=== PATIENT | female | born 1965 | race Caucasian/White ===

== ENCOUNTER 2019-10-13 10:05 | Outpatient (CLI) | payer OTHER, SELFPAY ==
--- NOTE | ~2019-10-13 | MR_ITS ---
EXAMINATION: MR thoracic spine wo con DATE: 10/13/2019 11:13 INDICATION: Thoracic spine pain TECHNIQUE: Magnetic resonance imaging (MRI) of the thoracic spine was performed without intravenous c ontrast. Sagittal localizer T1-weighted FSE of the cervicothoracic spine was obtained. Thoracic spine sequences included sagittal T2-weighted FSE, sagittal T1-weighted SE, Sagittal T2-weighted FS FSE, a nd axial T2-weighted FSE. COMPARISON: None FINDINGS: Alignment is normal.Vertebral body heights are normal. Normal marrow signal.Minimal to mild disc heig ht loss at T3-T4 through T9-T10. Additional mild disc height loss at T12-L1. There is normal spinal c ord signal. The conus terminates at L1. Disc extrusions at C6-C7 and T1-T2 which are described in fur ther detail on cervical spine MRI also performed on 10/13/2019. Annular fissure at T2-T3 with moderate disc extrusion which extends from the right paracentral zone to the left subarticular zone with disc material centrally extending up to 3 mm cephalad to and 5 mm caudal to the level of the endplates. Th ere is mild secondary central canal stenosis at this level. Annular fissures at T8-T9 with small left subarticular zone disc extrusion extending 3 mm cephalad to and 2 mm caudal to the level of the endp lates. Moderate diffuse disc bulges at T12-L1 with annular fissure and moderate sized right subarticu lar zone disc extrusion with disc material extending up to 3 mm cephalad and caudal to the level of t he endplates and resulting in mild central canal stenosis. Very small central disc protrusions at T6- T7, T9-T10 and T10-T11. Moderate bilateral facet osteoarthritis at T10-T11. Otherwise mild facet oste oarthritis throughout the remainder of the thoracic spine. No significant thoracic neural foraminal s tenosis. IMPRESSION: 1. Mild thoracic spondylosis with mild central canal stenosis resulting from a moderate-sized disc ex trusions at T2-T3 and T12-L1. Reviewed, dictated and finalized at location B. IMPRESSION: 1. Mild thoracic spondylosis with mild central canal stenosis resulting from a moderate-sized disc extrusions at T2-T3 and T12-L1.
--- NOTE | ~2019-10-13 | MR_ITS ---
EXAMINATION: MR cervical spine wo con DATE: 10/13/2019 11:13 INDICATION: Neck pain. TECHNIQUE: Magnetic resonance imaging (MRI) of the cervical spine was performed without intravenous c ontrast. Sequences included sagittal T2-weighted FSE, sagittal T2-weighted FS FSE, sagittal T1-weight ed FSE, axial MERGE, and axial T2-weighted FSE. COMPARISON: None FINDINGS: There is mild kyphosis of cervical spine. Vertebral body heights are normal. There is mildl y decreased disc height at C6-C7. The spinal cord signal intensity is normal. The following disc leve ls are specifically discussed: C2-C3: The disc does not extend beyond the endplate margin. There is no uncovertebral joint osteoarth ritis. There is mild bilateral facet joint osteoarthritis. There is no neural foraminal stenosis. The re is no central canal stenosis. C3-C4: There is a central protrusion. There is no uncovertebral joint osteoarthritis. There is modera te right and mild left facet joint osteoarthritis. There is mild right neural foraminal stenosis. The re is no central canal stenosis. C4-C5: The disc does not extend beyond the endplate margin. There is no uncovertebral joint osteoarth ritis. There is mild right and severe left facet joint osteoarthritis. There is mild left neural fora nikos stenosis. There is no central canal stenosis. C5-C6: There is a central protrusion. There is no uncovertebral joint osteoarthritis. There is modera te left facet joint osteoarthritis. There is mild left neural foraminal stenosis. There is mild centr al canal stenosis. C6-C7: There is a central extrusion. There is mild right and moderate left uncovertebral joint osteoa rthritis. There is mild bilateral facet joint osteoarthritis. There is moderate right and mild left n eural foraminal stenosis. There is mild central canal stenosis with ventral indentation of the spinal cord. C7-T1: There is a left central extrusion. There is no uncovertebral joint osteoarthritis. There is mi ld right and severe left facet joint osteoarthritis. There is mild left neural foraminal stenosis. Th ere is mild central canal stenosis. IMPRESSION: 1. Moderate cervical spondylosis. Reviewed, dictated and finalized at location A.
== END 2019-10-13 10:06 | disposition home or self-care (01) ==
LOC: CHSIMG 10:09
PROVIDERS: PCP Family Medicine
DX: M99.01 Segmental and somatic dysfunction of cervical region (principal); M99.02 Segmental and somatic dysfunction of thoracic region; M54.6 Pain in thoracic spine
CPT/HCPCS: 72141; 72146

== ENCOUNTER → 2019-12-14 15:27 | Outpatient (CLI) | payer OTHER, SELFPAY ==
--- NOTE | ~2019-12-14 | US_ITS ---
EXAMINATION: US pelvic complete w TV DATE: 12/14/2019 16:02 INDICATION: Pelvic pain. TECHNIQUE: Multiple transabdominal and transvaginal sonographic images of the pelvis were obtained. COMPARISON: None. FINDINGS: TRANSABDOMINAL ULTRASOUND: The uterus measures 7.6 x 5.0 x 5.0 cm. There is no free fluid in the pelvis. TRANSVAGINAL ULTRASOUND: The endometrial complex measures 6 mm in thickness. There is a 1.2 cm hypoechoic submucosal fibroid. There is a 1.9 cm hypoechoic intramural fibroid. The right ovary is not visualized. The left ovary me asures 1.8 x 1.1 x 1.6 cm. There is normal vascular flow in left ovary. IMPRESSION: 1. Uterine fibroids. 2. Right ovary not visualized. Reviewed, dictated and finalized at location A.
== END ==
PROVIDERS: PCP Family Medicine; Visit Provider Nurse Practitioner
DX: R10.2 Pelvic and perineal pain (principal); D25.9 Leiomyoma of uterus, unspecified
CPT/HCPCS: 76830; 76856

== ENCOUNTER → 2020-02-02 15:19 | Outpatient (CLI) | payer OTHER, SELFPAY ==
--- NOTE | ~2020-02-02 | MM_ITS ---
EXAMINATION: MM screening fifi BI w senthil HISTORY: Screening mammogram TECHNIQUE: Craniocaudal and mediolateral oblique 3-D tomosynthesis images were obtained and synthetic 2-D images were generated. CAD analysis was submitted and interpreted. COMPARISON: 09/10/2018, 09/09/2017 bilateral digital screening mammogram examinations 08/27/2016 bilateral diagnostic digital mammogram BREAST PARENCHYMAL COMPOSITION: The breasts are almost entirely fatty. FINDINGS: There are scattered bilateral benign calcifications. There is no evidence of suspicious mas s, calcification, or architectural distortion to suggest malignancy in either breast. There has been no suspicious interval change. IMPRESSION: 1. No mammographic evidence of malignancy. 2. Recommend routine screening mammography in one year. BI-RADS Category 2: Benign finding(s). Reviewed, dictated and finalized at location A. ORATE SALES REPRESENTATIVE
== END ==
PROVIDERS: PCP Family Medicine; Visit Provider Nurse Practitioner
DX: Z12.31 Encounter for screening mammogram for malignant neoplasm of breast (principal)
CPT/HCPCS: 77063; 77067

== ENCOUNTER → 2021-05-16 | Outpatient (REF) | payer OTHER, SELFPAY | END | disposition home or self-care (01) | LOC: ANHLAB 16:52 | PROVIDERS: PCP Family Medicine; Visit Provider Nurse Practitioner | DX: D49.2 Neoplasm of unspecified behavior of bone, soft tissue, and skin (principal); L57.0 Actinic keratosis | CPT/HCPCS: 88305 ==

== ENCOUNTER → 2021-12-26 16:02 | Outpatient (CLI) | payer OTHER, SELFPAY ==
--- NOTE | ~2021-12-26 | MM_ITS ---
EXAMINATION: MM screening fifi BI w senthil HISTORY: Screening TECHNIQUE: Craniocaudal and mediolateral oblique 3-D tomosynthesis images were obtained and synthetic 2-D images were generated. CAD analysis was submitted and interpreted. COMPARISON: Comparison to multiple prior studies sequentially, with oldest reviewed study dated 07/22. BREAST PARENCHYMAL COMPOSITION: The breasts are almost entirely fatty. FINDINGS: There is a focal asymmetry in the lower outer quadrant of the right breast, posteriorly. Th ere are no suspicious masses, calcifications or architectural distortion in the left breast to sugges t malignancy. IMPRESSION: 1. Focal right breast asymmetry. 2. Additional mammographic views and possible breast ultrasound are recommended. BI-RADS Category 0: Incomplete: Needs additional imaging evaluation. Reviewed, dictated and finalized at location A. ISIONING SPECIALIST IMPRESSION: 1. Focal right breast asymmetry. 2. Additional mammographic views and possible breast ultrasound are recommended . BI-RADS Category 0: Incomplete: Needs additional imaging evaluation.
== END ==
PROVIDERS: PCP Family Medicine; Visit Provider Nurse Practitioner
DX: Z12.31 Encounter for screening mammogram for malignant neoplasm of breast (principal); R92.8 Other abnormal and inconclusive findings on diagnostic imaging of breast
CPT/HCPCS: 77063; 77067

== ENCOUNTER → 2022-01-18 08:28 | Outpatient (CLI) | payer OTHER, SELFPAY ==
--- NOTE | ~2022-01-18 | MMUS_ITS ---
EXAMINATION: MM diagnostic fifi RT w senthil, US breast RT limited HISTORY: Focal asymmetry of the right breast on screening mammogram TECHNIQUE: Additional 3-D tomosynthesis images of the right breast were performed and synthetic 2-D i mages were generated. CAD analysis was submitted and interpreted. High resolution limited right breas t ultrasound was performed. COMPARISON: 12/26/2021, 01/03/2020, 09/10/2018, 09/09/2017 FINDINGS: MAMMOGRAPHIC FINDINGS: There is a return to baseline fibroglandular appearance with spot compression of the right breast in the area questioned on screening mammogram. ULTRASOUND: There is no evidence of focal abnormal solid or cystic mass in the vicinity of the mammographic findi ng in question. Small cysts are noted in the breast. IMPRESSION: 1. No mammographic or sonographic evidence of malignancy. 2. Recommend routine screening mammography in one year. BI-RADS Category 2: Benign finding(s). Reviewed, dictated and finalized at location A. RING AND LINING SUPERVISOR IMPRESSION: 1. No mammographic or sonographic evidence of malignancy. 2. Recommend routine screening mammography in one year. BI-RADS Category 2: Benign finding(s).
== END ==
PROVIDERS: PCP Family Medicine; Visit Provider Obstetrics & Gynecology Gynecology
DX: R92.8 Other abnormal and inconclusive findings on diagnostic imaging of breast (principal)
CPT/HCPCS: 76642; 77061; 77065; G0279

== ENCOUNTER 2022-06-16 09:26 | Emergency (ER) | payer OTHER, SELFPAY ==
--- NOTE | 2022-06-16 09:36 | ED.URI ---
HPI - URI/Sore Throat General Chief Complaint: Upper Respiratory Infection Stated Complaint: SCRATCHY THROAT/COUGH/STREP EXPOSURE Source: patient and RN notes reviewed History of Present Illness HPI Narrative: 56-year-old female presents to urgent care with complaints of a scratchy throat, runny nose, sneezing, and had fullness. Patient states she has felt like this since and feels like she is coming down with something. Patient states her 2-year-old grand child currently has strep throat and she has been around her. Patient denies any fevers, chills, chest pain, shortness of breath, vomiting, or diarrhea. Patient has not taken anything for her symptoms. Some parts of this dictation were generated by voice recognition software and may contain typographical and/or grammatical inaccuracies. Related Data Home Medications Medication Instructions Recorded Confirmed ergocalciferol (vitamin D2) 1,250 1,250 mcg PO 2XW 01/03/21 06/16/22 mcg (50,000 unit) capsule Allergies Allergy/AdvReac Type Severity Reaction Status Date / Time amoxicillin Allergy Mild Hives Verified 06/16/22 09:44 Review of Systems Review of Systems: Pertinent positives and pertinent negatives per HPI. [facility] Past Medical History Medical History (Updated 06/16/22 @ 10:09 by Mavis Hartman APRN) Anxiety Elevated blood pressure reading in office without diagnosis of hypertension FH: diabetes mellitus Hypertriglyceridemia Pre-diabetes Vitamin D deficiency Family History Family History Mother Diabetes mellitus Hypertension Family history of cardiovascular disease Grandparent Diabetes mellitus Hypertension Family history of cardiovascular disease Father Family history of glaucoma Social History Social History (Updated 06/11/22 @ 12:02 by Sanjana Olivera [facility]) Smoking status: Never smoker Second hand tobacco smoke exposure: No Alcohol intake: never Substance use: never Substance use type: does not use Lack of Transportation: No Lack of Food: Never True Current Housing: I Have Housing Concerned About Future Housing: No Difficulty Paying Gas/Electric Bills: No Difficulty Paying for Meds: No Currently Unemployed: No Difficulty w/ Childcare or Family Care: No Living arrangements: with family Gender identity (if verbalized by the patient): Female Spiritual care concerns: No Agree to blood products: Yes Comments At the time of my signature, I reviewed and agree with the nursing past medical, surgical, social, and family history. There is no relevant family history pertinent to the patient complaint. Exam Narrative: GENERAL: This is a well-nourished, well-developed patient, in no apparent distress. HEAD: normocephalic, atraumatic. EYES: Sclera clear/white. Vision is grossly intact. EARS: External ears normal, auditory canals clear and without drainage, TMs normal without perforation. Hearing grossly intact. NOSE: External nose normal with no obvious nasal discharge, nares without redness, no rhinorrhea. THROAT: Mucous membranes moist, posterior pharynx clear. NECK: Neck supple, non-tender without lymphadenopathy, masses or thyromegaly. CARDIOVASCULAR: Regular rate and rhythm without murmurs, gallops, or rubs. RESPIRATORY: Clear to auscultation. Breath sounds equal bilaterally. No wheezes, rales, or rhonchi. SKIN: warm, intact with no suspicious lesions or rash, good texture and turgor. NEURO: awake, alert, and oriented to person, place and time. There were no obvious focal neurologic abnormalities. Course Course Level of Care: Express Care Visit Vital Signs Vital signs: Reviewed MDM - URI/Sore Throat MDM Narrative Medical decision making narrative: Viral illness may last between 7-21 days; antibiotics do not cure viral illness and are NOT recommended at this time. Also, recommend symptomatic treatment includ
[2022-06-16 09:51] VITALS: BP 146/91; PULSE 93; RESP 16; TEMP 36.8; O2SAT 98
== END 2022-06-16 10:13 | disposition home or self-care (01) ==
PROVIDERS: Emergency Provider Nurse Practitioner Family; PCP Family Medicine
DX: J06.9 Acute upper respiratory infection, unspecified (principal); F41.9 Anxiety disorder, unspecified
CPT/HCPCS: 87081; 87880; 99213; G0463

== ENCOUNTER → 2022-06-28 09:22 | Outpatient (CLI) | payer OTHER, SELFPAY ==
--- NOTE | ~2022-06-28 | MMUS_ITS ---
EXAMINATION: MM diagnostic fifi RT w senthil, US breast RT limited HISTORY: Palpable lump in the upper outer quadrant of the right breast TECHNIQUE: Craniocaudal, mediolateral, and mediolateral oblique 3-D tomosynthesis images of the right breast were performed and synthetic 2-D images were generated. CAD analysis was submitted and interp reted. High resolution limited right breast ultrasound was performed. COMPARISON: 01/18/2022, 12/26/2021, 02/02/2020 BREAST PARENCHYMAL COMPOSITION: The breasts are almost entirely fatty. FINDINGS: MAMMOGRAPHIC FINDINGS: There has been interval development of focal asymmetry in the upper outer quadrant of the breast at t he site of the patient's reported palpable abnormality of concern. This is associated with interval d evelopment of multiple new small oil cysts in the area of palpable concern. An approximately 11 mm lo w density mass with mildly irregular margins is incidentally noted at the 9:00 location, 15 cm from t he nipple. ULTRASOUND: There is ill-defined heterogeneous, isoechoic and hypoechoic nonmass area at the 11:30 location, 7 cm from the nipple corresponding to the palpable abnormality of concern. There is a 7 mm hypoechoic mas s with irregular and indistinct margins, posterior acoustic shadowing, and no definite internal vascu larity at the 9:00 location, 11 cm from the nipple. IMPRESSION: 1. Indeterminate mass at the 9:00 location, 11 cm from the nipple in the right breast. Ultrasound-lynda ded biopsy is recommended. 2. Mammographic and sonographic findings at the site of the palpable abnormality suggestive of interv al breast trauma and resolving hematoma. Clinical follow-up is recommended with repeat imaging if cli nical findings do not resolve. BI-RADS category 4, suspicious findings. Reviewed, dictated and finalized at location A. IMPRESSION: 1. Indeterminate mass at the 9:00 location, 11 cm from the nipple in the right breast. Ultrasound-guided biopsy is recommended. 2. Mammographic and sonographic findings at the site of the palpable abnormalit y suggestive of interval breast trauma and resolving hematoma. Clinical follow- up is recommended with repeat imaging if clinical findings do not resolve. BI-RADS category 4, suspicious findings.
== END ==
PROVIDERS: PCP Advanced Practice Midwife; Visit Provider Advanced Practice Midwife
DX: N63.10 Unspecified lump in the right breast, unspecified quadrant (principal); N64.4 Mastodynia
CPT/HCPCS: 76642; 77061; 77065; G0279

== ENCOUNTER 2022-07-26 10:15 | Outpatient (CLI) | payer OTHER, SELFPAY ==
--- NOTE | ~2022-07-26 | MMUS_ITS ---
EXAMINATION: US GUIDED NEEDLE BIOPSY DATE: 07/26/2022 14:12 CDT INDICATION: Indeterminate approximately 4 mm 9:00 right breast mass TECHNIQUE AND FINDINGS: The risks and potential benefits of the procedure were discussed with the patient, and written inform ed consent was obtained. Timeout procedure was performed. After sterile preparation of the right rosalie st, 1% lidocaine was utilized for local anesthesia. The area of concern was not easily located. A hypoechoic area was identified at 9:00, although not at 11 cm from the nipple. No definite abnormality was detected at 9:00 11 cm from the nipple on the current examination. The visualized lesion on the current examination however is antiparallel and mildly irregular, prompt ing biopsy. Six-month diagnostic right mammogram and right breast ultrasound follow-up are recommended, with part icular attention to 9:00 11 cm from nipple. A 14G spring-loaded biopsy gun needle was advanced to the edge of the region of interest from a media l approach utilizing sonographic guidance. A total of three tissue core samples were obtained throug h the lesion. An Inrad tissue marker clip was then placed at the biopsy site. Hemostasis was achieve d. A sterile bandage was applied. The patient tolerated procedure well and there was no evidence of immediate complication. The patien t was given verbal instructions prior to departing from the department. A two view mammogram was perf ormed to document tissue marker clip placement. The tissue samples were submitted to surgical patholo gy for histologic analysis. IMPRESSION: 1. Ultrasound guided biopsy of right 9:00 breast hypoechoic mass with biopsy marker placement. Please refer to pathology report for histologic analysis. 2. 6 month diagnostic right mammogram and right 9:00 11 cm from nipple breast ultrasound follow-up ar humberto recommended PLEASE NOTE RECOMMENDATION FOR 6 MONTH FOLLOW UP DIAGNOSTIC RIGHT MAMMOGRAM AND RIGHT BREAST 9:00 ULT RASOUND INCLUDING [address] Fierro telephoned this recommendation for six-month follow-up on 07/26/2022 [address] Jewel jackson's triage nurse voicemail. Reviewed, dictated and finalized at Location A. Reviewed, dictated and finalized at location A. IMPRESSION: 1. Ultrasound guided biopsy of right 9:00 breast hypoechoic mass with biopsy ma rker placement. Please refer to pathology report for histologic analysis. 2. 6 month diagnostic right mammogram and right 9:00 11 cm from nipple breast u ltrasound follow-up are recommended PLEASE NOTE RECOMMENDATION FOR 6 MONTH FOLLOW UP DIAGNOSTIC RIGHT MAMMOGRAM AND RIGHT BREAST 9:00 ULTRASOUND INCLUDING [address]. [address] Fierro telephoned this recommendation for six-month follow-up on 07/26/2022 [address] Lucero's triage nurse voicemail.
== END 2022-07-26 10:16 | disposition home or self-care (01) ==
PROVIDERS: PCP Family Medicine; Visit Provider Surgery
DX: N63.10 Unspecified lump in the right breast, unspecified quadrant (principal); R92.8 Other abnormal and inconclusive findings on diagnostic imaging of breast
CPT/HCPCS: 19083; 88305; A4648

== ENCOUNTER → 2022-12-31 14:14 | Outpatient (CLI) | payer OTHER, SELFPAY ==
--- NOTE | ~2022-12-31 | MM_ITS ---
EXAMINATION: MM diagnostic fifi BI w senthil HISTORY: Six-month follow-up of right breast from previous reportedly benign biopsy. Screening of lef t breast. TECHNIQUE: ML, MLO and CC 3-D tomosynthesis images of both breasts were performed and synthetic 2-D i mages were generated. CAD analysis was submitted and interpreted. COMPARISON: 07/26/2022 right ultrasound-guided breast biopsy 06/28/2022 diagnostic right mammogram and limited right breast ultrasound 01/18/2022 diagnostic right mammogram and limited right breast ultrasound 12/26/2021, 02/02/2020 bilateral screening mammogram examinations BREAST PARENCHYMAL COMPOSITION: The breasts are almost entirely fatty. FINDINGS: Biopsy marker on the right; history of prior benign right breast biopsy. No suspicious mass or architectural distortion, malignant calcification, skin thickening or retractio n or significant new or developing density is detected. IMPRESSION: 1. No mammographic evidence of malignancy 2. Routine annual mammographic screening is recommended. BI-RADS Category 1: Negative Reviewed, dictated and finalized at location A. ER CARE SOCIAL WORKER
== END ==
PROVIDERS: PCP Surgery; Referring Provider Family Medicine; Visit Provider Obstetrics & Gynecology Gynecology
DX: R92.8 Other abnormal and inconclusive findings on diagnostic imaging of breast (principal)
CPT/HCPCS: 77062; 77066; G0279

== ENCOUNTER 2024-02-27 07:33 | Outpatient (CLI) | payer OTHER, SELFPAY ==
--- NOTE | ~2024-02-27 | DEXA_ITS ---
Bone Density Report Name: PRAKASH RODRIGUEZ Age: 58 Sex: Female Ethnicity: White Date of : 1965 Indication: postmenopausal; screening for osteoporosis; height loss; Referring Provider: JOSIAH, ZACARIAS Study: Bone densitometry was performed. Exam Date: February 27, 2024 Accession number: [id number] Bone Density: Region BMD T-score Z-score Classification AP Spine(L1, L3, L4) 1.375 2.9 4.2 Normal Femoral Neck (Left) 1.056 1.9 3.0 Normal Total Hip (Left) 1.224 2.3 3.1 Normal Femoral Neck (Right) 1.107 2.3 3.5 Normal Total Hip (Right) 1.291 2.9 3.7 Normal Femoral Neck Mean 1.081 2.1 3.3 Normal Total Hip Mean 1.257 2.6 3.4 Normal World Health Organization criteria for BMD impression classify patients as: Normal (T-score at or above -1.0), Osteopenia (T-score between -1.0 and -2.5), or Osteoporosis (T-score at or below -2.5). 10-year Fracture Risk: FRAX not reported because: All T-scores for Spine Total, Hip Total, Femoral Neck at or above -1.0 Clinical Information Provided by Patient: Has used the following medications: Vitamin D Patient maximum height was 69 Menopause Age: 57 No regular weight bearing exercise Does not regularly consume dairy products Onset of menses at age 12 Number of children 3 Impression: The patient has normal bone mass. Discussion: LOW RISK OF FRACTURE; BONE DENSITY IS WELL ABOVE THE MINIMUM DESIRABLE LEVEL AND ABOVE AVERAGE FOR AGE AND SEX AT ALL SKELETAL SITES TESTED. This person's bone density is above expected limits for age and sex. This is rarely clinically significant, but should be pursued if there are significant musculoskeletal complaints. The patient should follow a healthful lifestyle (good nutrition with adequate calcium and vitamin D, and appropriate weight-bearing exercise). Follow-Up: Consider repeating this study in 5 years or sooner if there is some new clinical indication. Reported by: JAYME on 02/27/2024 8:07:00 AM. Reviewed, dictated and finalized at location A.
[2024-02-27 09:31] LABS: Alanine Aminotransferase 37 U/L (14-59); Albumin Level 3.8 g/dL (3.4-5.0); Alkaline Phosphatase 72 U/L (46-116); Anion Gap 9 mmol/L (4-12); Aspartate Amino Transferase 25 U/L (15-37); Bilirubin,Total 0.3 mg/dL (0.00-1.00); Blood Urea Nitrogen 21 mg/dL (7-18); Calcium 9.6 mg/dL (8.5-10.1); Carbon Dioxide 30 mmol/L (21-32); Chloride 105 mmol/L (98-108); Cholesterol 178 mg/dL (0-200); Estimated Glomerular Filt Rate > 60; Glucose 133 mg/dL (70-99); HDL Direct 54 mg/dL (40-60); LDL Cholesterol Calculated 107 mg/dL (<130); Osmolality Calculated 303 mOsm/kg (285-295); Potassium 4.3 mmol/L (3.5-5.1); Sodium 144 mmol/L (136-145); Total Protein 6.7 g/dL (6.4-8.2); Triglycerides 85 mg/dL (0-150)
== END 2024-02-27 07:34 | disposition home or self-care (01) ==
LOC: CHSIMG 07:36
PROVIDERS: PCP Family Medicine; Visit Provider Nurse Practitioner Women's Health
DX: E11.9 Type 2 diabetes mellitus without complications (principal); E78.2 Mixed hyperlipidemia; Z78.0 Asymptomatic menopausal state
CPT/HCPCS: 36415; 77080; 80053; 80061

== ENCOUNTER 2024-10-03 11:56 | Outpatient (CLI) | payer OTHER, SELFPAY ==
--- OUTSIDE RECORDS SUMMARY | 2011-05-17 | XMS_ITS | Encounter Summary ---
Author Organization [facility] Healthcare Address [address] [place] [address] Care Team Providers Care Tab Cutting Machine Operator Name Role Phone Unavailable Primary Care Provider Unavailabl e Reason for Visit * Diagnostic Imaging (Routine) - Pending Review Specialty Diagnoses / Procedures Referred By Contac t Referred To Contact Procedures Breast Imaging Screening Outside Reference Transcribed Order, Provider Referral ID Status Reason Start Date Expiration Date V isits Requested Visits Authorized [id number] Pending Review 12/31/2023 01/29/2025 1 1 Encounter Details Date Type Department Care Team (Late st Contact Info) Description 05/17/2011 Hospital Encounter [facility]iology [facility] [address] [place] [address] Social History Tobacco Use Types Packs/Day Years Used Date Smoking Tobacco: Never Smokeless Tobacco: Never Alcohol Use Standard Drinks/Week Comments Not Currently 0 (1 standard drink = 0.6 oz pur e alcohol) Comments No Sex and Gender Information Value Date Recorded Sex Assigned at Not on file Legal Sex Female 12:50 PM BLADE WORKER Gender Identity Not on file Sexual Orientation [...] CDT) Impressions [facility] - 12/31/2023 3:22 PM BLADE WORKER These images are for Reference purposes only and have not been reviewed by [facility]. There will be no report generated by a [facility] Radiologist. Narrative [facility] - 12/31/2023 3:22 PM BLADE WORKER EXAMINATION: Images For Reference Purposes Only us Provider Transcribed Order IMG MAMMO PROCEDURES Final Result [facility] documented in this encounter Visit Diagnoses Not on filedocumented in this encounter
--- OUTSIDE RECORDS SUMMARY | 2012-05-29 | XMS_ITS | Encounter Summary ---
Author Organization [facility] Healthcare Address [address] [place] [address] Care Team Providers Care Dehydrogenation Operator Head Name Role Phone Unavailable Primary Care Provider Unavailabl e Reason for Visit * Diagnostic Imaging (Routine) - Pending Review Specialty Diagnoses / Procedures Referred By Contac t Referred To Contact Procedures Breast Imaging Screening Outside Reference Transcribed Order, Provider Referral ID Status Reason Start Date Expiration Date V isits Requested Visits Authorized [id number] Pending Review 12/31/2023 01/29/2025 1 1 Encounter Details Date Type Department Care Team (Late st Contact Info) Description 05/29/2012 Hospital Encounter [facility] Radiology [facility] [address] [place] [address] Social History Tobacco Use Types Packs/Day Years Used Date Smoking Tobacco: Never Smokeless Tobacco: Never Alcohol Use Standard Drinks/Week Comments Not Currently 0 (1 standard drink = 0.6 oz pur e alcohol) Comments No Sex and Gender Information Value Date Recorded Sex Assigned at Not on file Legal Sex Female 12:50 PM SUPERVISOR YARD Gender Identity Not on file Sexual Orientation [...] BREAST IMAGING MG SCREENING OUTSIDE REFERENCE Routine 05/29/2012 12:00 AM CDT documented in this encounter Results * Breast Imaging Screening Outside Reference (05/29/2012 12:00 AM CDT) Impressions [facility] - 12/31/2023 3:21 PM SUPERVISOR YARD These images are for Reference purposes only and have not been reviewed by [facility]iology. There will be no report generated by a [facility] Radiologist. Narrative [facility] - 12/31/2023 3:21 PM SUPERVISOR YARD EXAMINATION: Images For Reference Purposes Only us Provider Transcribed Order IMG MAMMO PROCEDURES Final Result [facility] documented in this encounter Visit Diagnoses Not on filedocumented in this encounter
--- OUTSIDE RECORDS SUMMARY | 2013-06-12 | XMS_ITS | Encounter Summary ---
Author Organization [facility] Healthcare Address [address] [place] [address] Care Team Providers Care Seat Nailer Name Role Phone Unavailable Primary Care Provider Unavailabl e Reason for Visit * Diagnostic Imaging (Routine) - Pending Review Specialty Diagnoses / Procedures Referred By Shobhaac t Referred To Contact Procedures Breast Imaging US Outside Reference Transcribed Order, Provider Referral ID Status Reason Start Date Expiration Date V isits Requested Visits Authorized [id number] Pending Review 12/31/2023 01/29/2025 1 1 Encounter Details Date Type Department Care Team (Late st Contact Info) Description 06/12/2013 Hospital Encounter [facility]iology [facility] [address] [place] [address] Social History Tobacco Use Types Packs/Day Years Used Date Smoking Tobacco: Never Smokeless Tobacco: Never Alcohol Use Standard Drinks/Week Comments Not Currently 0 (1 standard drink = 0.6 oz pur e alcohol) Comments No Sex and Gender Information Value Date Recorded Sex Assigned at Not on file Legal Sex Female 12:50 PM CERTIFIED PHYSICAL THERAPIST ASSISTANT Gender Identity Not on file Sexual Orientation Not on file documented as of this encounter Plan of Treatment Not on file documented as of this encounter Goals Goal Patient Goal Type Associated Problems Recent Progress Patient-Stated? Author CCM Chronic Pain Care Plan Chronic Care Management No Bonnei Jolley, RN Note: Problem: Chronic Pain Goals: [...] CDT) Impressions [facility] - 12/31/2023 3:21 PM CERTIFIED PHYSICAL THERAPIST ASSISTANT These images are for Reference purposes only and have not been reviewed by [facility] Radiology. There will be no report generated by a [facility] Radiologist. Narrative RAD[facility] - 12/31/2023 3:21 PM CERTIFIED PHYSICAL THERAPIST ASSISTANT EXAMINATION: Images For Reference Purposes Only us Provider Transcribed Order IMG MAMMO PROCEDURES Final Result [facility] documented in this encounter Visit Diagnoses Not on filedocumented in this encounter
--- OUTSIDE RECORDS SUMMARY | 2013-06-12 00:05 | XMS_ITS | Encounter Summary ---
Author Organization [facility] Healthcare Address [address] [place] [address] Care Team Providers Care Gold Layer Name Role Phone Unavailable Primary Care Provider Unavailabl e Reason for Visit * Diagnostic Imaging (Routine) - Pending Review Specialty Diagnoses / Procedures Referred By Faviola t Referred To Contact Procedures Breast Imaging Diagnostic Outside Reference Transcribed Order, Provider Referral ID Status Reason Start Date Expiration Date V isits Requested Visits Authorized [id number] Pending Review 12/31/2023 01/29/2025 1 1 Encounter Details Date Type Department Care Team (Late st Contact Info) Description 06/12/2013 12:05 AM CDT Hospital Encounter [facility] Radiology [facility] [address] [place] [id number] Social History Tobacco Use Types Packs/Day Years Used Date Smoking Tobacco: Never Smokeless Tobacco: Never Alcohol Use Standard Drinks/Week Comments Not Currently 0 (1 standard drink = 0.6 oz pur e alcohol) Comments No Sex and Gender Information Value Date Recorded Sex Assigned at Not on file Legal Sex Female 12:50 PM NEEDLE PROCESS FELT GOODS SUPERVISOR Gender Identity Not on file Sexual Orientation [...] Date/Time Associated Diagnosis Comments BREAST IMAGING MG DIAGNOSTIC OUTSIDE REFERENCE Routine 06/12/2013 12:05 AM CDT documented in this encounter Results * Breast Imaging Diagnostic Outside Reference (06/12/2013 12:05 AM CDT) Impressions [facility] - 12/31/2023 3:21 PM NEEDLE PROCESS FELT GOODS SUPERVISOR These images are for Reference purposes only and have not been reviewed by [facility]iology. There will be no report generated by a [facility] Radiologist. Narrative RAD_M[facility] - 12/31/2023 3:21 PM NEEDLE PROCESS FELT GOODS SUPERVISOR EXAMINATION: Images For Reference Purposes Only us Provider Transcribed Order IMG MAMMO PROCEDURES Final Result [facility] documented in this encounter Visit Diagnoses Not on filedocumented in this encounter
--- OUTSIDE RECORDS SUMMARY | 2014-07-22 | XMS_ITS | Encounter Summary ---
Author Organization [facility] Healthcare Address [address] [place] [address] Care Team Providers Care Chemistry Tutor Name Role Phone Unavailable Primary Care Provider Unavailabl e Reason for Visit * Diagnostic Imaging (Routine) - Pending Review Specialty Diagnoses / Procedures Referred By Contac t Referred To Contact Procedures Breast Imaging Diagnostic Outside Reference Transcribed Order, Provider Referral ID Status Reason Start Date Expiration Date V isits Requested Visits Authorized [id number] Pending Review 12/31/2023 01/29/2025 1 1 Encounter Details Date Type Department Care Team (Late st Contact Info) Description 07/22/2014 Hospital Encounter [facility]iology [facility] [address] [place] [address] Social History Tobacco Use Types Packs/Day Years Used Date Smoking Tobacco: Never Smokeless Tobacco: Never Alcohol Use Standard Drinks/Week Comments Not Currently 0 (1 standard drink = 0.6 oz pur e alcohol) Comments No Sex and Gender Information Value Date Recorded Sex Assigned at Not on file Legal Sex Female 12:50 PM HEALTH UNDERWRITER Gender Identity Not on file Sexual Orientation [...] BREAST IMAGING MG DIAGNOSTIC OUTSIDE REFERENCE Routine 07/22/2014 12:00 AM CDT documented in this encounter Results * Breast Imaging Diagnostic Outside Reference (07/22/2014 12:00 AM CDT) Impressions [facility] - 12/31/2023 3:21 PM HEALTH UNDERWRITER These images are for Reference purposes only and have not been reviewed by [facility]iology. There will be no report generated by a [facility] Radiologist. Narrative RAD_M[facility] - 12/31/2023 3:21 PM HEALTH UNDERWRITER EXAMINATION: Images For Reference Purposes Only us Provider Transcribed Order IMG MAMMO PROCEDURES Final Result [facility] documented in this encounter Visit Diagnoses Not on filedocumented in this encounter
--- OUTSIDE RECORDS SUMMARY | 2015-08-10 | XMS_ITS | Encounter Summary ---
Author Organization [facility] Healthcare Address [address] [place] [address] Care Team Providers Care Lodge Sales Associate Name Role Phone Unavailable Primary Care Provider Unavailabl e Reason for Visit * Diagnostic Imaging (Routine) - Pending Review Specialty Diagnoses / Procedures Referred By Contac t Referred To Contact Procedures Breast Imaging Screening Outside Reference Transcribed Order, Provider Referral ID Status Reason Start Date Expiration Date V isits Requested Visits Authorized [id number] Pending Review 12/31/2023 01/29/2025 1 1 Encounter Details Date Type Department Care Team (Late st Contact Info) Description 08/10/2015 Hospital Encounter [facility] [address] [place] [address] Social History Tobacco Use Types Packs/Day Years Used Date Smoking Tobacco: Never Smokeless Tobacco: Never Alcohol Use Standard Drinks/Week Comments Not Currently 0 (1 standard drink = 0.6 oz pur e alcohol) Comments No Sex and Gender Information Value Date Recorded Sex Assigned at Not on file Legal Sex Female 12:50 PM SOD CUTTER Gender Identity Not on file Sexual Orientation [...] CDT) Impressions [facility] - 12/31/2023 3:21 PM SOD CUTTER These images are for Reference purposes only and have not been reviewed by [facility]. There will be no report generated by a [facility] Radiologist. Narrative RAD[facility] - 12/31/2023 3:21 PM SOD CUTTER EXAMINATION: Images For Reference Purposes Only us Provider Transcribed Order IMG MAMMO PROCEDURES Final Result [facility] documented in this encounter Visit Diagnoses Not on filedocumented in this encounter
--- OUTSIDE RECORDS SUMMARY | 2016-08-27 | XMS_ITS | Encounter Summary ---
Author Organization [facility] Healthcare Address [address] [place] [address] Care Team Providers Care Physician Surgeon Name Role Phone Unavailable Primary Care Provider Unavailabl e Reason for Visit * Diagnostic Imaging (Routine) - Pending Review Specialty Diagnoses / Procedures Referred By Contac t Referred To Contact Procedures Breast Imaging Diagnostic Outside Reference Transcribed Order, Provider Referral ID Status Reason Start Date Expiration Date V isits Requested Visits Authorized [id number] Pending Review 12/31/2023 01/29/2025 1 1 Encounter Details Date Type Department Care Team (Late st Contact Info) Description 08/27/2016 Hospital Encounter [facility] [address] [place] [id number] Social History Tobacco Use Types Packs/Day Years Used Date Smoking Tobacco: Never Smokeless Tobacco: Never Alcohol Use Standard Drinks/Week Comments Not Currently 0 (1 standard drink = 0.6 oz pur e alcohol) Comments No Sex and Gender Information Value Date Recorded Sex Assigned at Not on file Legal Sex Female 12:50 PM BOARD SAW RUNNER Gender Identity Not on file Sexual Orientation [...] BREAST IMAGING MG DIAGNOSTIC OUTSIDE REFERENCE Routine 08/27/2016 12:00 AM CDT documented in this encounter Results * Breast Imaging Diagnostic Outside Reference (08/27/2016 12:00 AM CDT) Impressions [facility] - 12/31/2023 3:21 PM BOARD SAW RUNNER These images are for Reference purposes only and have not been reviewed by [facility] Radiology. There will be no report generated by a [facility] Radiologist. Narrative [facility] - 12/31/2023 3:21 PM BOARD SAW RUNNER EXAMINATION: Images For Reference Purposes Only us Provider Transcribed Order IMG MAMMO PROCEDURES Final Result [facility] documented in this encounter Visit Diagnoses Not on filedocumented in this encounter
--- OUTSIDE RECORDS SUMMARY | 2017-09-09 | XMS_ITS | Encounter Summary ---
Author Organization [facility] Healthcare Address [address] [place] [address] Care Team Providers Care Cotton Opener Name Role Phone Unavailable Primary Care Provider Unavailabl e Reason for Visit * Diagnostic Imaging (Routine) - Pending Review Specialty Diagnoses / Procedures Referred By Contac t Referred To Contact Procedures Breast Imaging Screening Outside Reference Transcribed Order, Provider Referral ID Status Reason Start Date Expiration Date V isits Requested Visits Authorized [id number] Pending Review 12/31/2023 01/29/2025 1 1 Encounter Details Date Type Department Care Team (Late st Contact Info) Description 09/09/2017 Hospital Encounter [facility] Radiology [facility] [address] [place] [address] Social History Tobacco Use Types Packs/Day Years Used Date Smoking Tobacco: Never Smokeless Tobacco: Never Alcohol Use Standard Drinks/Week Comments Not Currently 0 (1 standard drink = 0.6 oz pur e alcohol) Comments No Sex and Gender Information Value Date Recorded Sex Assigned at Not on file Legal Sex Female 12:50 PM HEALTH TECHNICAL WRITER Gender Identity Not on file Sexual Orientation [...] Impressions [facility] - 12/31/2023 3:21 PM HEALTH TECHNICAL WRITER These images are for Reference purposes only and have not been reviewed by [facility] Radiology. There will be no report generated by a [facility] Radiologist. Narrative [facility] - 12/31/2023 3:21 PM HEALTH TECHNICAL WRITER EXAMINATION: Images For Reference Purposes Only us Provider Transcribed Order IMG MAMMO PROCEDURES Final Result [facility] documented in this encounter Visit Diagnoses Not on filedocumented in this encounter
--- OUTSIDE RECORDS SUMMARY | 2018-09-10 | XMS_ITS | Encounter Summary ---
Author Organization [facility] Healthcare Address [address] [place] [address] Care Team Providers Care Solar Sales Name Role Phone Unavailable Primary Care Provider Unavailabl e Reason for Visit * Diagnostic Imaging (Routine) - Pending Review Specialty Diagnoses / Procedures Referred By Contac t Referred To Contact Procedures Breast Imaging Screening Outside Reference Transcribed Order, Provider Referral ID Status Reason Start Date Expiration Date V isits Requested Visits Authorized [id number] Pending Review 12/31/2023 01/29/2025 1 1 Encounter Details Date Type Department Care Team (Late st Contact Info) Description 09/10/2018 Hospital Encounter [facility] Radiology [facility] [address] [place] [address] Social History Tobacco Use Types Packs/Day Years Used Date Smoking Tobacco: Never Smokeless Tobacco: Never Alcohol Use Standard Drinks/Week Comments Not Currently 0 (1 standard drink = 0.6 oz pur e alcohol) Comments No Sex and Gender Information Value Date Recorded Sex Assigned at Not on file Legal Sex Female 12:50 PM HI LO DRIVER Gender Identity Not on file Sexual Orientation [...] BREAST IMAGING MG SCREENING OUTSIDE REFERENCE Routine 09/10/2018 12:00 AM CDT documented in this encounter Results * Breast Imaging Screening Outside Reference (09/10/2018 12:00 AM CDT) Impressions [facility] - 12/31/2023 3:21 PM HI LO DRIVER These images are for Reference purposes only and have not been reviewed by [facility] Radiology. There will be no report generated by a [facility] Radiologist. Narrative [facility] - 12/31/2023 3:21 PM HI LO DRIVER EXAMINATION: Images For Reference Purposes Only us Provider Transcribed Order IMG MAMMO PROCEDURES Final Result [facility] documented in this encounter Visit Diagnoses Not on filedocumented in this encounter
--- OUTSIDE RECORDS SUMMARY | 2020-02-02 01:00 | XMS_ITS | Encounter Summary ---
Author Organization [facility] Healthcare Address [address] [place] [address] Care Team Providers Care Selector Packer Name Role Phone Niyah Gutiérrez MD Primary Care Provider [phone] Berenice Brand RN Unavailable Unavailab le Reason for Visit * Diagnostic Imaging (Routine) - Pending Review Specialty Diagnoses / Procedures Referred By Contac t Referred To Contact Procedures Breast Imaging Screening Outside Reference Transcribed Order, Provider Referral ID Status Reason Start Date Expiration Date V isits Requested Visits Authorized [id number] Pending Review 12/31/2023 01/29/2025 1 1 Encounter Details Date Type Department Care Team (Late st Contact Info) Description 02/02/2020 Hospital Encounter [facility] [address] [place] [id number] Social History Tobacco Use Types Packs/Day Years Used Date Smoking Tobacco: Never Smokeless Tobacco: Never Alcohol Use Standard Drinks/Week Comments Not Currently 0 (1 standard drink = 0.6 oz pur e alcohol) Comments No Sex and Gender Information Value Date Recorded Sex Assigned at Not on file Legal Sex Female 12:50 PM REHABILITATION CONSULTANT Gender Identity Not on file Sexual Orientation [...] SCREENING OUTSIDE REFERENCE Routine 02/02/2020 12:00 AM REHABILITATION CONSULTANT documented in this encounter Results * Breast Imaging Screening Outside Reference (02/02/2020 12:00 AM REHABILITATION CONSULTANT) Impressions [facility] - 12/31/2023 3:21 PM REHABILITATION CONSULTANT These images are for Reference purposes only and have not been reviewed by [facility] Radiology. There will be no report generated by a [facility] Radiologist. Narrative RAD_M[facility]MO[facility] - 12/31/2023 3:21 PM REHABILITATION CONSULTANT EXAMINATION: Images For Reference Purposes Only us Provider Transcribed Order IMG MAMMO PROCEDURES Final Result [facility] documented in this encounter Visit Diagnoses Not on filedocumented in this encounter Care Teams Selector Packer Relationship Specialty Start Date End Date Niyah Gutiérrez MD PCP - General Family Medicine 10/23/19 Berenice Brand, RN Registered Nurse 12/22/19 documented as of this encounter
--- NOTE | ~2024-10-03 | MR_ITS ---
EXAMINATION: MR lumbar spine wo jeanine, 10/03/2024 12:00 CDT HISTORY: Chronic LBP radiating down Lt. leg Rt. hip COMPARISON: None TECHNIQUE: Multi-planar multi-sequence images were obtained of the lumbar spine without contrast per protocol. FINDINGS: Grade 1 retrolisthesis of L3 on L4, no fracture is identified. Marrow signal is appropriate with scattered subcentimeter areas of probable hemangioma formation. Posterior alignment is intact. No abnormal signal in the posterior elements Conus terminates at T12-L1, no abnormal signal within the cord There is severe loss of disc height L3-4 with moderate disc desiccation and endplate irregularity changes with moderate to severe changes noted of L5-S1 and L4-5. There are severe endplate degenerative changes with moderate disc desiccation also noted T12-L1. L5-S1: Circumferential bulging of the disc with ligamentum flavum and facet hypertrophy. Moderate bilateral foramina stenosis. No lateral recess or canal stenosis. L4-5: Circumferential bulging of the ligamentum flavum and facet hypertrophy. Moderate to severe bilateral foraminal and lateral recess stenosis with mild to moderate canal stenosis. L3-4: Circumferential bulging of the disc asymmetrically to the left. Moderate ligamentum flavum and facet hypertrophy. Severe left foraminal lateral recess stenosis. Moderate right foramina and lateral recess stenosis. Moderate canal stenosis. L2-L3: Circumferential bulging of the disc and mild bilateral foraminal stenosis. L1-L2: No canal or foraminal stenosis T12-L1: Circumferential bulging of the disc with mild bilateral foraminal stenosis, no canal stenosis. IMPRESSION: Degenerative changes detailed above Reviewed, dictated and finalized at location A.
--- OUTSIDE RECORDS SUMMARY | 2024-10-03 11:59 | XMS_ITS | Clinical Summary ---
Author Organization [facility] Address [address], [address] [address] Phone Care Team Providers Care Lockstitch Hemmer Name Role Phone Niyah Gutiérrez MD Primary Care Provider [phone] Social History Tobacco Use Types Packs/Day Years Used Date Smoking Tobacco: Never Assessed Comments Unknown Sex and Gender Information Value Date Recorded Sex Assigned at Not on file Legal Sex Female 7:25 PM CDT Gender Identity Not on file Sexual Orientation Not on file Plan of Treatment Health Maintenance Due Date Last Done Comments Hepatitis C Virus (HCV) Screening 1965 TdaP Immunization 1965 Hepatitis B Immunization (1 of 3 - 19+ 3-dose series) 1985 Pap Smear 10/30/1987 Cervical Cancer Screening (CCS) 1996 HPV/Cotest 1996 Cologuard 10/30/2011 Immunochemical Fecal Occult Blood 10/30/2011 Pneumococcal Immunization (5 0+ years) (1 of 1 - PCV) 2016 Zoster Immunization (1 of 2) 2016 SARS-COV-2 Immunization ( - season) 2023 Influenza Immunization (#1) 2024 Colonoscopy 12/17/2027 12/16/2017 Colorectal Cancer Screening 12/17/2027 Respiratory Syncytial Virus (RSV) Immunization (Adult) (1 - 1-dose 75+ series) 2041 Human Papillomavirus (HPV) Immunization Aged Out No longer eligible b ased on patient's age to complete this topic Meningococcal Immunization (ACWY) Aged Out No longer eligible based on patient's age to complete this topic Rotavirus Immunization Aged Out No lo nger eligible based on patient's age to complete this topic Procedures Procedure Name Priority Date/Time Associated Diagnosis Comments COLONOSCOPY Routine 12/16/2017 from Last 3 Months or Most Recently Relevant to Health Maintenance Results * COLONOSCOPY (12/16/2017) Subhash Little DO PROCEDURE/MINOR SURGICAL ORDERA BLES Final Result from Last 3 Months or Most Recently Relevant to Health Maintenance Care Teams Lockstitch Hemmer Relationship Specialty Start Date End Date Niyah Gutiérrez MD [address] [place] [address] PCP - General Family Medicine 11/13/17
--- OUTSIDE RECORDS SUMMARY | 2024-10-03 11:59 | XMS_ITS | Clinical Summary ---
Author Organization [facility] Address [address] [place] [address] Care Team Providers Care Molded Goods Operator Name Role Phone Niyah Gutiérrez MD Primary Care Provider [phone] Berenice Brand RN Unavailable Unavailab le Allergies Active Allergy Reactions Criticality Noted Date Comments Amoxicillin Hives Medium 11/05/2019 Medications acetaminophen 500 mg capsule Take 1,000 mg by mouth every 4 (four) hours as needed 10/09/19 20 Active Trulicity 1.5 mg/0.5 mL pen injector Inject 0.5 mL into the muscle as instructed once a week 08/29/19 20 Active ergocalciferol (VITAMIN D) 50,000 unit capsule Take 50,000 Units by mouth 2 (two) times a week 10/05/19 20 Active fenofibrate nanocrystallized (TRICOR) 145 mg tablet Take 145 mg by mouth daily 10/27/19 20 Active melatonin 10 mg tablet,disintegratin g Take 10 mg by mouth nightly Active MAGNESIUM ORAL Take 1 tablet by mouth daily Active Lactobacillus acidophilus (PROBIOTIC ORAL) Take 1 tablet by mouth daily Active docosahexaenoic acid/epa (FISH OIL ORAL) Take 2 tablets by mouth daily Active estradioL (VAGIFEM) 10 mcg tablet 12/14/19 20 Active Active Problems Problem Noted Date Diagnosed Date Cervical disc disorder with radiculopathy of mid-cervical region 11/05/2019 Immunizations Immunization Administration Dates Next Due Flucelvax Influenza Quad 12/07/2017,11/08/2016 Influenza, Quadrivalent, Spl it, Preservative Free, Intramuscular 12/03/2014 Influenza, Trivalent, IM (MDV) 12/24/2013 Influenza, Unspecified 11/11/2018 ZOSTER Recombinant 06/09/2019,12/17/2018 Family History Medical History Relation Name Comments Hypertension Brother Hypertension Father Early Maternal Grandfather Heart disease Maternal Grandfather Diabetes Maternal Grandmother Heart disease Maternal Grandmother Hypertension Maternal Grandmother Stroke Maternal Grandmother Diabetes Mother Heart disease Mother Hypertension Mother Stroke Mother Early Paternal Grandfather Heart disease Paternal Grandfather Heart disease Paternal Grandmother Hypertension Paternal Grandmother Stroke Paternal Grandmother Relation Name Status Comments Brother Father Maternal Grandfather Maternal Grandmother Mother Paternal Grandfather Paternal Grandmother Social History Tobacco Use Types Packs/Day Years Used Date Smoking Tobacco: Never Smokeless Tobacco: Never Tobacco Cessation:Counseling Given: No Alcohol Use Standard Drinks/Week Comments Not Currently 0 (1 standard drink = 0.6 oz pur e alcohol) Comments No Sex and Gender Information Value Date Recorded Sex Assigned at Not on file Legal Sex Female 12:50 PM ENVIRONMENTAL SUSTAINABILITY MANAGER Gender Identity Not on file Sexual Orientation Not on file Obstetrics History Last Filed Vital Signs Vital Sign Reading Time Taken Comments Blood Pressure 152/91 12/22/2019 11:27 AM ENVIRONMENTAL SUSTAINABILITY MANAGER Pulse 91 12/22/2019 11:27 AM ENVIRONMENTAL SUSTAINABILITY MANAGER Temperature 36.4 C (97.5 F) 12/22/2019 10:16 AM ENVIRONMENTAL SUSTAINABILITY MANAGER Respiratory Rate 20 12/22/2019 11:27 AM ENVIRONMENTAL SUSTAINABILITY MANAGER Oxygen Saturation 96% 12/22/2019 11:27 AM ENVIRONMENTAL SUSTAINABILITY MANAGER Inhaled Oxygen Concentration - - Weight 110.7 kg (244 lb) 12/22/2019 10:16 AM ENVIRONMENTAL SUSTAINABILITY MANAGER Height 175.3 cm (5' 9) 12/22/2019 10:16 AM ENVIRONMENTAL SUSTAINABILITY MANAGER Body Mass Index 36.03 12/22/2019 10:16 AM ENVIRONMENTAL SUSTAINABILITY MANAGER Plan of Treatment Health Maintenance Due Date Last Done Comments Cervical Cancer Screening 1965 Colon Cancer Screening-Colonoscopy 1966 Depression Screening 1966 Hepatitis C Screening 1966 DTaP/Tdap/Td Vaccine (1 - Tdap) 1977 Hepatitis B Screening 1984 Regular Well Visit/Exam 18-64 1984 Influenza Vaccine (#1) 2024 9, 12/07/2017, 11/08/2016, Additional history exists Breast Cancer Screening-Mammogram 01/13/2025 01/14/2024, 12/31/2022, 07/26/2022, Additional history exists Zoster Vaccine Completed 06/09/2019, 12/17/2018 Pneumococcal vaccine <65 Aged Out No longer eligible based on patient's age to complete this topic Goals Goal Patient Goal Type Associated Problems [...] lifestyle strategies and compensatory methods as needed Procedures Procedure Name Priority Date/Time Associated Diagnosis Comments SCREENING MAMMOGRAM BILATERAL W BAM Schedule Routine, Read Routine (OP Routine) 01/14/2024 1:02 PM ENVIRONMENTAL SUSTAINABILITY MANAGER Screening mammogram, encounter for from Last 3 Months or Most Recently Relevant to Health Maintenance Results * Screening Mammogram Bilateral W Bam (01/14/2024 1:02 PM ENVIRONMENTAL SUSTAINABILITY MANAGER) Anatomical Region Laterality Modality Breast Bilateral Mammography Narrative 01/15/2024 2:03 PM ENVIRONMENTAL SUSTAINABILITY MANAGER Mammogram Technique: Bilateral Digital Breast Tomosynthesis, Bilateral C-view 2D Screening mammogram. Views obtained: bilateral craniocaudal and bilateral mediolateral oblique. Computer Aided Detection was performed. Mammogram Findings: The present examination has been compared to prior imaging studies performed at [facility] on 06/28/2022, 07/26/2022 and 12/31/2022. The breasts are almost entirely fatty. There is no suspicious abnormality in either breast. Impression: There is no mammographic evidence of malignancy. Annual screening mammography is recommended. OVERALL FINAL ASSESSMENT: BI-RADS CATEGORY 1: Negative. Procedure Note Caroline Mcfarlane MD - 01/15/2024 Mammogram Technique: Bilateral Digital Breast Tomosynthesis, Bilateral C-view 2D Screening mammogram. Views obtained: bilateral craniocaudal and bilateral mediolateral oblique. Computer Aided Detection was performed. Mammogram Findings: The present examination has been compared to prior imaging studies performed at [facility] [place] on 06/28/2022, 07/26/2022 and 12/31/2022. The breasts are almost entirely fatty. There is no suspicious abnormality in either breast. Impression: There is no mammographic evidence of malignancy. Annual screening mammography is recommended. OVERALL FINAL ASSESSMENT: BI-RADS CATEGORY 1: Negative. us Self Screening Mammogram IMG MAMMO PROCEDURES Fi nal Result from Last 3 Months or Most Recently Relevant to Health Maintenance Insurance [facility] H[facility]/PPO Address: [facility] [address] [place] [address] [facility] H[facility]/PPO Address: [facility] [address] [place] [address] Care Teams Molded Goods Operator Relationship Specialty Start Date End Date Niyah Gutiérrez MD PCP - General Family Medicine 10/23/19 Berenice Brand, RN Registered Nurse 12/22/19
== END 2024-10-03 11:57 | disposition home or self-care (01) ==
PROVIDERS: PCP Family Medicine; Visit Provider Family Medicine
DX: M54.50 Low back pain, unspecified (principal)
CPT/HCPCS: 72148

== ENCOUNTER 2024-11-17 10:36 | Outpatient (CLI) | payer OTHER, SELFPAY ==
--- OUTSIDE RECORDS SUMMARY | 2011-05-17 | XMS_ITS | Encounter Summary ---
Author Organization [facility] Healthcare Address [address] [place] [address] Care Team Providers Care Needle Process Felt Goods Supervisor Name Role Phone Unavailable Primary Care Provider Unavailabl e Reason for Visit * Diagnostic Imaging (Routine) - Pending Review Specialty Diagnoses / Procedures Referred By Contac t Referred To Contact Procedures Breast Imaging Screening Outside Reference Transcribed Order, Provider Referral ID Status Reason Start Date Expiration Date V isits Requested Visits Authorized [id number] Pending Review 12/31/2023 01/29/2025 1 1 Encounter Details Date Type Department Care Team (Late st Contact Info) Description 05/17/2011 Hospital Encounter [facility] [address] [place] [address] Social History Tobacco Use Types Packs/Day Years Used Date Smoking Tobacco: Never Smokeless Tobacco: Never Alcohol Use Standard Drinks/Week Comments Not Currently 0 (1 standard drink = 0.6 oz pur e alcohol) Comments No Sex and Gender Information Value Date Recorded Sex Assigned at Not on file Legal Sex Female 12:50 PM GIVING OFFICER Gender Identity Not on file Sexual Orientation Not on file documented as of this encounter Plan of Treatment Not on file documented as of this encounter Goals Goal Patient Goal Type Associated Problems Recent Progress Patient-Stated? Author CCM Chronic Pain Care Plan Chronic Care Management No Bonnie Jolley, RN Note: Problem: Chronic Pain Goals: 1. Minimize further functional decline 2. Maximize quality of life 3. Control pain Strategies: - Activity/exercise program recommendation - Conservative stepwise pain medicine strategy with multi-disciplinary approach - Recommend healthy lifestyle strategies and compensatory methods as needed documented as of this encounter Procedures Procedure Name Priority Date/Time Associated Diagnosis Comments BREAST IMAGING MG SCREENING OUTSIDE REFERENCE Routine 05/17/2011 12:00 AM CDT documented in this encounter Results * Breast Imaging Screening Outside Reference (05/17/2011 12:00 AM CDT) Impressions [facility] - 12/31/2023 3:22 PM GIVING OFFICER These images are for Reference purposes only and have not been reviewed by [facility]. There will be no report generated by a [facility] Radiologist. Narrative [facility] - 12/31/2023 3:22 PM GIVING OFFICER EXAMINATION: Images For Reference Purposes Only us Provider Transcribed Order IMG MAMMO PROCEDURES Final Result [facility] documented in this encounter Visit Diagnoses Not on filedocumented in this encounter
--- OUTSIDE RECORDS SUMMARY | 2012-05-29 | XMS_ITS | Encounter Summary ---
Author Organization [facility] Healthcare Address [address] [place] [address] Care Team Providers Care Podiatric Surgeon Name Role Phone Unavailable Primary Care Provider Unavailabl e Reason for Visit * Diagnostic Imaging (Routine) - Pending Review Specialty Diagnoses / Procedures Referred By Contac t Referred To Contact Procedures Breast Imaging Screening Outside Reference Transcribed Order, Provider Referral ID Status Reason Start Date Expiration Date V isits Requested Visits Authorized [id number] Pending Review 12/31/2023 01/29/2025 1 1 Encounter Details Date Type Department Care Team (Late st Contact Info) Description 05/29/2012 Hospital Encounter [facility]iology [facility] [address] [place] [address] Social History Tobacco Use Types Packs/Day Years Used Date Smoking Tobacco: Never Smokeless Tobacco: Never Alcohol Use Standard Drinks/Week Comments Not Currently 0 (1 standard drink = 0.6 oz pur e alcohol) Comments No Sex and Gender Information Value Date Recorded Sex Assigned at Not on file Legal Sex Female 12:50 PM SHODDY MILL WORKER Gender Identity Not on file Sexual [...] CDT) Impressions [facility] - 12/31/2023 3:21 PM SHODDY MILL WORKER These images are for Reference purposes only and have not been reviewed by [facility]iology. There will be no report generated by a [facility] Radiologist. Narrative [facility] - 12/31/2023 3:21 PM SHODDY MILL WORKER EXAMINATION: Images For Reference Purposes Only us Provider Transcribed Order IMG MAMMO PROCEDURES Final Result [facility] documented in this encounter Visit Diagnoses Not on filedocumented in this encounter
--- OUTSIDE RECORDS SUMMARY | 2013-06-12 | XMS_ITS | Encounter Summary ---
Author Organization [facility] Healthcare Address [address] [place] [address] Care Team Providers Care Sales Operations Assistant Name Role Phone Unavailable Primary Care Provider Unavailabl e Reason for Visit * Diagnostic Imaging (Routine) - Pending Review Specialty Diagnoses / Procedures Referred By Shobhaac t Referred To Contact Procedures Breast Imaging US Outside Reference Transcribed Order, Provider Referral ID Status Reason Start Date Expiration Date V isits Requested Visits Authorized [id number] Pending Review 12/31/2023 01/29/2025 1 1 Encounter Details Date Type Department Care Team (Late st Contact Info) Description 06/12/2013 Hospital Encounter [facility]iology [facility] [address] [place] [address] Social History Tobacco Use Types Packs/Day Years Used Date Smoking Tobacco: Never Smokeless Tobacco: Never Alcohol Use Standard Drinks/Week Comments Not Currently 0 (1 standard drink = 0.6 oz pur e alcohol) Comments No Sex and Gender Information Value Date Recorded Sex Assigned at Not on file Legal Sex Female 12:50 PM EMERY GRINDER Gender Identity Not on file Sexual Orientation [...] Priority Date/Time Associated Diagnosis Comments BREAST IMAGING US OUTSIDE REFERENCE Routine 06/12/2013 12:00 AM CDT documented in this encounter Results * Breast Imaging US Outside Reference (06/12/2013 12:00 AM CDT) Impressions [facility] - 12/31/2023 3:21 PM EMERY GRINDER These images are for Reference purposes only and have not been reviewed by [facility]. There will be no report generated by a [facility] Radiologist. Narrative RAD[facility] - 12/31/2023 3:21 PM EMERY GRINDER EXAMINATION: Images For Reference Purposes Only us Provider Transcribed Order IMG MAMMO PROCEDURES Final Result [facility] documented in this encounter Visit Diagnoses Not on filedocumented in this encounter
--- OUTSIDE RECORDS SUMMARY | 2013-06-12 00:05 | XMS_ITS | Encounter Summary ---
Author Organization [facility] Healthcare Address [address] [place] [address] Care Team Providers Care Pawn Broker Name Role Phone Unavailable Primary Care Provider Unavailabl e Reason for Visit * Diagnostic Imaging (Routine) - Pending Review Specialty Diagnoses / Procedures Referred By Faviola t Referred To Contact Procedures Breast Imaging Diagnostic Outside Reference Transcribed Order, Provider Referral ID Status Reason Start Date Expiration Date V isits Requested Visits Authorized [id number] Pending Review 12/31/2023 01/29/2025 1 1 Encounter Details Date Type Department Care Team (Late st Contact Info) Description 06/12/2013 12:05 AM CDT Hospital Encounter [facility] Radiology [facility] [address] [place] [phone] Social History Tobacco Use Types Packs/Day Years Used Date Smoking Tobacco: Never Smokeless Tobacco: Never Alcohol Use Standard Drinks/Week Comments Not Currently 0 (1 standard drink = 0.6 oz pur e alcohol) Comments No Sex and Gender Information Value Date Recorded Sex Assigned at Not on file Legal Sex Female 12:50 PM INSTRUCTIONAL MANAGER Gender Identity Not on file Sexual Orientation [...] CDT) Impressions [facility] - 12/31/2023 3:21 PM INSTRUCTIONAL MANAGER These images are for Reference purposes only and have not been reviewed by [facility]. There will be no report generated by a [facility] Radiologist. Narrative RAD[facility] - 12/31/2023 3:21 PM INSTRUCTIONAL MANAGER EXAMINATION: Images For Reference Purposes Only us Provider Transcribed Order IMG MAMMO PROCEDURES Final Result [facility] documented in this encounter Visit Diagnoses Not on filedocumented in this encounter
--- OUTSIDE RECORDS SUMMARY | 2014-07-22 | XMS_ITS | Encounter Summary ---
Author Organization [facility] Healthcare Address [address] [place] [address] Care Team Providers Care Applications Sales Consultant Name Role Phone Unavailable Primary Care Provider Unavailabl e Reason for Visit * Diagnostic Imaging (Routine) - Pending Review Specialty Diagnoses / Procedures Referred By Contac t Referred To Contact Procedures Breast Imaging Diagnostic Outside Reference Transcribed Order, Provider Referral ID Status Reason Start Date Expiration Date V isits Requested Visits Authorized [id number] Pending Review 12/31/2023 01/29/2025 1 1 Encounter Details Date Type Department Care Team (Late st Contact Info) Description 07/22/2014 Hospital Encounter [facility]iology [facility] [address] [place] [address] Social History Tobacco Use Types Packs/Day Years Used Date Smoking Tobacco: Never Smokeless Tobacco: Never Alcohol Use Standard Drinks/Week Comments Not Currently 0 (1 standard drink = 0.6 oz pur e alcohol) Comments No Sex and Gender Information Value Date Recorded Sex Assigned at Not on file Legal Sex Female 12:50 PM BRAINER Gender Identity Not on file Sexual Orientation [...] CDT) Impressions [facility] - 12/31/2023 3:21 PM BRAINER These images are for Reference purposes only and have not been reviewed by [facility]. There will be no report generated by a [facility] Radiologist. Narrative [facility] - 12/31/2023 3:21 PM BRAINER EXAMINATION: Images For Reference Purposes Only us Provider Transcribed Order IMG MAMMO PROCEDURES Final Result [facility] documented in this encounter Visit Diagnoses Not on filedocumented in this encounter
--- OUTSIDE RECORDS SUMMARY | 2015-08-10 | XMS_ITS | Encounter Summary ---
Author Organization [facility] Healthcare Address [address] [place] [address] Care Team Providers Care Director Of Primary Care Name Role Phone Unavailable Primary Care Provider Unavailabl e Reason for Visit * Diagnostic Imaging (Routine) - Pending Review Specialty Diagnoses / Procedures Referred By Contac t Referred To Contact Procedures Breast Imaging Screening Outside Reference Transcribed Order, Provider Referral ID Status Reason Start Date Expiration Date V isits Requested Visits Authorized [id number] Pending Review 12/31/2023 01/29/2025 1 1 Encounter Details Date Type Department Care Team (Late st Contact Info) Description 08/10/2015 Hospital Encounter [facility] [address] [place] [address] Social History Tobacco Use Types Packs/Day Years Used Date Smoking Tobacco: Never Smokeless Tobacco: Never Alcohol Use Standard Drinks/Week Comments Not Currently 0 (1 standard drink = 0.6 oz pur e alcohol) Comments No Sex and Gender Information Value Date Recorded Sex Assigned at Not on file Legal Sex Female 12:50 PM STRUCTURED CABLING TECHNICIAN Gender Identity Not on file Sexual Orientation [...] BREAST IMAGING MG SCREENING OUTSIDE REFERENCE Routine 08/10/2015 12:00 AM CDT documented in this encounter Results * Breast Imaging Screening Outside Reference (08/10/2015 12:00 AM CDT) Impressions [facility] - 12/31/2023 3:21 PM STRUCTURED CABLING TECHNICIAN These images are for Reference purposes only and have not been reviewed by [facility]iology. There will be no report generated by a [facility] Radiologist. Narrative RAD[facility] - 12/31/2023 3:21 PM STRUCTURED CABLING TECHNICIAN EXAMINATION: Images For Reference Purposes Only us Provider Transcribed Order IMG MAMMO PROCEDURES Final Result [facility] documented in this encounter Visit Diagnoses Not on filedocumented in this encounter
--- OUTSIDE RECORDS SUMMARY | 2016-08-27 | XMS_ITS | Encounter Summary ---
Author Organization [facility] Healthcare Address [address] [place] [address] Care Team Providers Care Inorganic Chemical Technician Name Role Phone Unavailable Primary Care Provider Unavailabl e Reason for Visit * Diagnostic Imaging (Routine) - Pending Review Specialty Diagnoses / Procedures Referred By Contac t Referred To Contact Procedures Breast Imaging Diagnostic Outside Reference Transcribed Order, Provider Referral ID Status Reason Start Date Expiration Date V isits Requested Visits Authorized [id number] Pending Review 12/31/2023 01/29/2025 1 1 Encounter Details Date Type Department Care Team (Late st Contact Info) Description 08/27/2016 Hospital Encounter [facility] Radiology [facility] [address] [place] [id number] Social History Tobacco Use Types Packs/Day Years Used Date Smoking Tobacco: Never Smokeless Tobacco: Never Alcohol Use Standard Drinks/Week Comments Not Currently 0 (1 standard drink = 0.6 oz pur e alcohol) Comments No Sex and Gender Information Value Date Recorded Sex Assigned at Not on file Legal Sex Female 12:50 PM FREIGHT AND PASSENGER AGENT Gender Identity Not on file Sexual Orientation [...] CDT) Impressions [facility] - 12/31/2023 3:21 PM FREIGHT AND PASSENGER AGENT These images are for Reference purposes only and have not been reviewed by [facility] Radiology. There will be no report generated by a [facility] Radiologist. Narrative [facility] - 12/31/2023 3:21 PM FREIGHT AND PASSENGER AGENT EXAMINATION: Images For Reference Purposes Only us Provider Transcribed Order IMG MAMMO PROCEDURES Final Result [facility] documented in this encounter Visit Diagnoses Not on filedocumented in this encounter
--- OUTSIDE RECORDS SUMMARY | 2017-09-09 | XMS_ITS | Encounter Summary ---
Author Organization [facility] Healthcare Address [address] [place] [address] Care Team Providers Care Product Sales Representative Name Role Phone Unavailable Primary Care Provider Unavailabl e Reason for Visit * Diagnostic Imaging (Routine) - Pending Review Specialty Diagnoses / Procedures Referred By Contac t Referred To Contact Procedures Breast Imaging Screening Outside Reference Transcribed Order, Provider Referral ID Status Reason Start Date Expiration Date V isits Requested Visits Authorized [id number] Pending Review 12/31/2023 01/29/2025 1 1 Encounter Details Date Type Department Care Team (Late st Contact Info) Description 09/09/[address] [facility] Radiology [facility] [address] [place] [address] Social History Tobacco Use Types Packs/Day Years Used Date Smoking Tobacco: Never Smokeless Tobacco: Never Alcohol Use Standard Drinks/Week Comments Not Currently 0 (1 standard drink = 0.6 oz pur e alcohol) Comments No Sex and Gender Information Value Date Recorded Sex Assigned at Not on file Legal Sex Female 12:50 PM ENGINEERED WOOD DESIGNER Gender Identity Not on file Sexual Orientation [...] BREAST IMAGING MG SCREENING OUTSIDE REFERENCE Routine 09/09/2017 12:00 AM CDT documented in this encounter Results * Breast Imaging Screening Outside Reference (09/09/2017 12:00 AM CDT) Impressions [facility] - 12/31/2023 3:21 PM ENGINEERED WOOD DESIGNER These images are for Reference purposes only and have not been reviewed by [facility] Radiology. There will be no report generated by a [facility] Radiologist. Narrative [facility] - 12/31/2023 3:21 PM ENGINEERED WOOD DESIGNER EXAMINATION: Images For Reference Purposes Only us Provider Transcribed Order IMG MAMMO PROCEDURES Final Result [facility] documented in this encounter Visit Diagnoses Not on filedocumented in this encounter
--- OUTSIDE RECORDS SUMMARY | 2018-09-10 | XMS_ITS | Encounter Summary ---
Author Organization [facility] Healthcare Address [address] [place] [address] Care Team Providers Care Sales Department Manager Name Role Phone Unavailable Primary Care Provider Unavailabl e Reason for Visit * Diagnostic Imaging (Routine) - Pending Review Specialty Diagnoses / Procedures Referred By Contac t Referred To Contact Procedures Breast Imaging Screening Outside Reference Transcribed Order, Provider Referral ID Status Reason Start Date Expiration Date V isits Requested Visits Authorized [id number] Pending Review 12/31/2023 01/29/2025 1 1 Encounter Details Date Type Department Care Team (Late st Contact Info) Description 09/10/2018 Hospital Encounter [facility] Radiology [facility] [address] [place] [address] Social History Tobacco Use Types Packs/Day Years Used Date Smoking Tobacco: Never Smokeless Tobacco: Never Alcohol Use Standard Drinks/Week Comments Not Currently 0 (1 standard drink = 0.6 oz pur e alcohol) Comments No Sex and Gender Information Value Date Recorded Sex Assigned at Not on file Legal Sex Female 12:50 PM CUP SETTER LOCKSTITCH Gender Identity Not on file Sexual Orientation [...] CDT) Impressions [facility] - 12/31/2023 3:21 PM CUP SETTER LOCKSTITCH These images are for Reference purposes only and have not been reviewed by [facility] Radiology. There will be no report generated by a [facility] Radiologist. Narrative RAD[facility] - 12/31/2023 3:21 PM CUP SETTER LOCKSTITCH EXAMINATION: Images For Reference Purposes Only us Provider Transcribed Order IMG MAMMO PROCEDURES Final Result [facility] documented in this encounter Visit Diagnoses Not on filedocumented in this encounter
--- OUTSIDE RECORDS SUMMARY | 2020-02-02 01:00 | XMS_ITS | Encounter Summary ---
Author Organization [facility] Healthcare Address [address] [place] [address] Care Team Providers Care Computer Scientist Name Role Phone Niyah Gutiérrez MD Primary Care Provider [phone] Berenice Brand RN Unavailable Unavailab le Reason for Visit * Diagnostic Imaging (Routine) - Pending Review Specialty Diagnoses / Procedures Referred By Contac t Referred To Contact Procedures Breast Imaging Screening Outside Reference Transcribed Order, Provider Referral ID Status Reason Start Date Expiration Date V isits Requested Visits Authorized [id number] Pending Review 12/31/2023 01/29/2025 1 1 Encounter Details Date Type Department Care Team (Late st Contact Info) Description 02/02/2020 Hospital Encounter [facility] Radiology [facility] [address] [place] [phone] Social History Tobacco Use Types Packs/Day Years Used Date Smoking Tobacco: Never Smokeless Tobacco: Never Alcohol Use Standard Drinks/Week Comments Not Currently 0 (1 standard drink = 0.6 oz pur e alcohol) Comments No Sex and Gender Information Value Date Recorded Sex Assigned at Not on file Legal Sex Female 12:50 PM FLOORING MACHINE OPERATOR Gender Identity Not on file Sexual Orientation Not on file documented as of this encounter Plan of Treatment Not on file documented as of this encounter Goals Goal Patient Goal Type Associated Problems Recent Progress Patient-Stated? Author CCM Chronic Pain Care Plan Chronic Care Management No Bonnie Jolley RN Note: Problem: Chronic Pain Goals: 1. Minimize further functional decline 2. Maximize quality of life 3. Control pain Strategies: - Activity/exercise program recommendation - Conservative stepwise pain medicine strategy with multi-disciplinary approach - Recommend healthy lifestyle strategies and compensatory methods as needed documented as of this encounter Procedures Procedure Name Priority Date/Time Associated Diagnosis Comments BREAST IMAGING MG SCREENING OUTSIDE REFERENCE Routine 02/02/2020 12:00 AM FLOORING MACHINE OPERATOR documented in this encounter Results * Breast Imaging Screening Outside Reference (02/02/2020 12:00 AM FLOORING MACHINE OPERATOR) Impressions [facility] - 12/31/2023 3:21 PM FLOORING MACHINE OPERATOR These images are for Reference purposes only and have not been reviewed by [facility] Radiology. There will be no report generated by a [facility] Radiologist. Narrative RAD[facility] - 12/31/2023 3:21 PM FLOORING MACHINE OPERATOR EXAMINATION: Images For Reference Purposes Only us Provider Transcribed Order IMG MAMMO PROCEDURES Final Result [facility] documented in this encounter Visit Diagnoses Not on filedocumented in this encounter Care Teams Computer Scientist Relationship Specialty Start Date End Date Niyah Gutiérrez MD PCP - General Family Medicine 10/23/19 Berenice Brand, RN Registered Nurse 12/22/19 documented as of this encounter
--- OUTSIDE RECORDS SUMMARY | 2024-11-17 11:55 | XMS_ITS | Clinical Summary ---
Author Organization [facility] Address [address], [address] [address] Phone Care Team Providers Care Feedmobile Driver Name Role Phone Niyah Gutiérrez MD Primary Care Provider [phone] Social History Tobacco Use Types Packs/Day Years [...] 2016 Zoster Immunization (1 of 2) 2016 Influenza Immunization (#1) 2024 SARS-COV-2 Immunization ( season) 2024 Colonoscopy 12/17/2027 12/16/2017 Colorectal Cancer Screening [...] Recently Relevant to Health Maintenance Care Teams Feedmobile Driver Relationship Specialty Start Date End Date Niyah Gutiérrez MD [address] [place] [address] PCP - General Family Medicine 11/13/17
--- OUTSIDE RECORDS SUMMARY | 2024-11-17 11:55 | XMS_ITS | Patient Health Record ---
Author Organization [facility] Address [address] [place], [place] [id number] Support Name Relationship Address Phone PRAKASH RODRIGUEZ Guarantor Unknown [phone] Reason For Referral No Information Medications Medication SIG (Take, Route, Frequency, Duration) Notes Start Date End Date Status Medrol Dosepak ORAL Medrol DosepakOr iginal MedicationMedrol Dosepak *Reorder from Deenty for eRx and Interaction Alerts* 08/01/2012 Active Plan Of Treatment No Information Insurance Providers Payer Name Payer Address Payer Phone Subscriber Number Group Number Insured Name Patient Relationship to Insured Coverage Start Date Coverage End Date [facility] [address] [address] [place] [id number] PRAKASH RODRIGUEZ Self - patient is the insured
--- OUTSIDE RECORDS SUMMARY | 2024-11-17 11:55 | XMS_ITS | Clinical Summary ---
Author Organization [facility] Address [address] [place] [address] Care Team Providers Care Gill Box Fixer Name Role Phone Niyah Gutiérrez MD Primary Care Provider [phone] Berenice Brand RN Unavailable Unavailab le Allergies [...] on file Legal Sex Female 12:50 PM FIELD ADVISOR Gender Identity Not on file Sexual Orientation Not on file Obstetrics History Last Filed Vital Signs Vital Sign Reading Time Taken Comments Blood Pressure 152/91 12/22/2019 11:27 AM FIELD ADVISOR Pulse 91 12/22/2019 11:27 AM FIELD ADVISOR Temperature 36.4 C (97.5 F) 12/22/2019 10:16 AM FIELD ADVISOR Respiratory Rate 20 12/22/2019 11:27 AM FIELD ADVISOR Oxygen Saturation 96% 12/22/2019 11:27 AM FIELD ADVISOR Inhaled Oxygen Concentration - - Weight 110.7 kg (244 lb) 12/22/2019 10:16 AM FIELD ADVISOR Height 175.3 cm (5' 9) 12/22/2019 10:16 AM FIELD ADVISOR Body Mass Index 36.03 12/22/2019 10:16 AM FIELD ADVISOR Plan of Treatment Health Maintenance Due Date [...] Read Routine (OP Routine) 01/14/2024 1:02 PM FIELD ADVISOR Screening mammogram, encounter for from Last 3 Months or Most Recently Relevant to Health Maintenance Results * Screening Mammogram Bilateral W Bam (01/14/2024 1:02 PM FIELD ADVISOR) Anatomical Region Laterality Modality Breast Bilateral Mammography Narrative 01/15/2024 2:03 PM FIELD ADVISOR Mammogram Technique: Bilateral Digital Breast Tomosynthesis, Bilateral C-view 2D Screening mammogram. Views obtained: bilateral craniocaudal and bilateral mediolateral oblique. Computer Aided Detection was performed. Mammogram Findings: The present examination has been compared to prior imaging studies performed at [facility] on 06/28/2022, 07/26/2022 and 12/31/2022. The breasts [...] compared to prior imaging studies performed at [facility] on 06/28/2022, 07/26/2022 and 12/31/2022. The breasts are almost entirely fatty. There is no suspicious abnormality in either breast. Impression: There is no mammographic evidence of malignancy. Annual screening mammography is recommended. OVERALL FINAL ASSESSMENT: BI-RADS CATEGORY 1: Negative. us Self Screening Mammogram IMG MAMMO PROCEDURES Fi nal Result from Last 3 Months or Most Recently Relevant to Health Maintenance Insurance [facility] PL[facility] [employer] PL[facility] Care Teams Gill Box Fixer Relationship Specialty Start Date End Date Niyah Gutiérrez MD PCP - General Family Medicine 10/23/19 Berenice Brand, RN Registered Nurse 12/22/19
--- NOTE | 2024-12-10 08:29 | WPDSLEEPSTUD ---
Sleep Study Date of Study: 11/17/24 Ordering Provider: Niyah Gutiérrez MD Interpreting Physician: Kati Chen DO Sleep Study Type: Split Polysomnogram Height: 1.75 m Weight: 108.862 kg Body Mass Index: 35.4 Neck Circumference (inches): 15 [place]: 16 Reason for Sleep Study Daytime hypersomnia Sleep History The patient is a 59-year-old female that had a sleep study ordered by her primary care physician for evaluation of sleep apnea. The patient rarely awakens from sleep short of breath. She frequently awakens at night with heartburn, belching or cough. She frequently snores and is occasionally loud enough that others complain. She rarely has trouble sleeping when she has a cold. She denies waking up gasping for air throughout the night. She denies having breathing problems at night observed by herself or others. She occasionally sweats excessively at night. She denies having heart palpitations or irregular heartbeats during the night. She frequently falls asleep during the day but rarely while driving. She denies sleep paralysis and cataplexy. She rarely has trouble at school or work due to sleepiness. She rarely experiences vivid dreamlike scenes upon awakening or falling asleep. She denies feeling afraid of going to sleep. She denies having nightmares. She occasionally remembers her dreams. She rarely has thoughts racing through her mind. She denies feeling sad or depressed. She frequently has anxiety. She occasionally has muscular tension. She occasionally notices parts of her body jerk. She frequently kicks during the night. She rarely has crawling and aching feelings in her legs and rarely has leg pain during the night. She frequently grinds her teeth during sleep but never awakens with morning jaw pain. She is constantly bothered by pain during the day and constantly awakened by pain during the night. She constantly wakes up feeling stiff in the morning. She constantly wakes up with sore or achy muscles. She constantly wakes up with pain in the neck, spine other joints. She goes to bed at midnight on weekdays and between midnight to 1:00 a.m. on the weekends. She wakes up 3-4 times throughout the night for unknown reasons and it can take her 30 minutes to fall back asleep. She wakes up at 6:00 a.m. on weekdays and 8:00 a.m. on the weekends. She typically gets 5-6 hours of sleep per night. She will stay in bed for 15 minutes after waking up in the morning. She currently lives with her . She denies consuming any caffeinated beverages within 2 hours of bedtime. She denies engaging in physical exercise before bedtime. She will watch television before falling asleep. She will take naps in afternoon or the evening that are refreshing. She consumes 1-2 cups of caffeinated beverage per day. She denies tobacco, alcohol and recreational drug use. [facility] Past Medical History Medical History Diabetes mellitus Anxiety Elevated blood pressure reading in office without diagnosis of hypertension FH: diabetes mellitus Hypertriglyceridemia Pre-diabetes Vitamin D deficiency Family History Family History Mother Diabetes mellitus Hypertension Family history of cardiovascular disease Grandparent Diabetes mellitus Hypertension Family history of cardiovascular disease Father Family history of glaucoma Social History Social History Smoking status: Never smoker Second hand tobacco smoke exposure: No Alcohol intake: never Substance use: never Substance use type: does not use Lack of Transportation: No Lack of Food: Never True Current Housing: I Have Housing Concerned About Future Housing: No Difficulty Paying Gas/Electric Bills: No Difficulty Paying for Meds: No Currently Unemployed: No Education: High School Diploma/GED Difficulty w/ Childcare or Family Care: No Living arrangements: with family Occupation/Education: retired Gender identity (if verbalized by the patient): Female Spiritual care concerns: No Agree to blood products: Yes Medications Home Medications ?Medication ?Instructions ?Recorded ?Confirmed ?Type ergocalciferol (vitamin D2) 1,250 1,250 mcg PO 2XW 01/03/21 09/01/24 History mcg (50,000 unit) capsule blood sugar diagnostic (Blood #100 ea 03/13/23 09/01/24 Rx Glucose Test strips) blood-glucose meter #1 ea 03/13/23 09/01/24 Rx lancets #100 ea 03/13/23 09/01/24 Rx valacyclovir 1 gram tablet 2,000 mg (2 x 1 gram) PO Q12H PRN 06/20/23 09/01/24 Rx cold sores #30 tabs celecoxib 200 mg capsule (Celebrex) 200 mg PO DAILY #90 caps 06/05/24 09/01/24 Rx ropinirole 0.5 mg tablet 0.5 mg PO QHS #90 tabs 06/28/24 09/01/24 Rx prednisone 10 mg tablet 10 mg PO DIRECTED #30 tabs 07/27/24 09/01/24 Rx fenofibrate nanocrystallized 145 145 mg PO DAILY #90 tabs 08/27/24 09/01/24 Rx mg tablet losartan 25 mg tablet 12.5 mg (1/2 x 25 mg) PO DAILY #90 09/01/24 09/01/24 Rx tabs duloxetine 60 mg capsule,delayed 60 mg PO DAILY #90 caps 09/03/24 Rx release tirzepatide 10 mg/0.5 mL 10 mg (0.5 mL) subcut WEEKLY #2 mL 11/16/24 Rx subcutaneous pen injector (Mounjaro) Sleep Procedure A full night split study using the [employer] SleepVouchercloud multi-channel system recorded the standard physiologic parameters including EEG, EOG, submentalis EMG, anterior tibialis EMG, EKG, body position, nasal and oral airflow using nasal pressure sensor and thermistor.? Respiratory parameters of chest and abdominal movements were recorded with Respiratory Inductance Plethysmography belts. Oxygen saturation was recorded by pulse oximetry. Video monitoring was also performed. Sleep stages, periodic limb movements, and EEG arousals were scored in 30 second epochs according to the criteria of the AASM Scoring Manual. The Apnea-Hypopnea Index was calculated using CMS guidelines for definition of hypopnea with 4% O2 desaturations while scoring respiratory events. Sleep Architecture During the diagnostic portion of the study, the total recording time was 248.7 minutes. The total sleep time was 218.5 minutes. Sleep latency was 4.7 minutes.? REM latency was 214.5 minutes. Sleep Efficiency was 87.9%. The patient had 13 awakenings for an awakening index of 3.6. Wake after sleep onset time was 25.5 minutes. The patient spent 14.0 minutes, 6.4% of total sleep time in Stage N1. The patient spent 115.5 minutes, 52.9% in Stage N2. The patient spent 72.0 minutes, 33.0% in Stage N3. The patient spent 17.0 minutes, 7.8% in Stage REM sleep. At 02:42:16 AM the patient was placed on PAP treatment and was titrated at pressures ranging from 5 cm H20 up to 12 cm H20. During the treatment portion of the study, the total recording time was 223.5 minutes.? The total sleep time was 153.5 minutes. Sleep latency was 40.5 minutes. REM latency was 91.0 minutes. Sleep Efficiency was 68.7%. Wake after Sleep Onset time was 29.5 minutes. The patient spent 22.5 minutes, 14.7% of total sleep time in Stage N1. The patient spent 105.0 minutes, 68.4% in Stage N2. The patient spent 0.0 minutes, 0.0% in Stage N3. The patient spent 26.0 minutes, 16.9% in Stage REM. Respiratory Analysis During the diagnostic portion of the study, the patient had 24 hypopneas and 3 central apneas for an overall Apnea Hypopnea Index of 7.4 events per hour. The REM Apnea Hypopnea Index was 52.9. The NREM Apnea Hypopnea Index was 4.2. The patient had a Central Apnea Hypopnea Index of 0.8. There was no evidence of Bethel-Valdes Respirations. During the treatment portion of the study, the patient had 20 hypopneas for an overall Apnea Hypopnea Index of 7.8 events per hour. The REM Apnea Hypopnea Index was 20.8. The NREM Apnea Hypopnea Index was 5.2. The patient had a Central Apnea Hypopnea Index of 0. There was no evidence of Bethel-Valdes Respirations. The patient was started on CPAP 5 cm H2O and titrated to CPAP 12 cm H2O due to hypopneas. The patient was able to fall asleep starting on CPAP 5 cm H2O. The patient was able to achieve REM sleep starting on CPAP 9 cm H2O. On CPAP 12 cm H2O, the patient spent 31 minutes in NREM and 1 minute in REM with no respiratory events, resulting in an AHI of 0. The patient had a sleep efficiency of 87.7% on that pressure setting. Arousals During the diagnostic portion of the study, there were a total of 106 arousals for an arousal index of 29.1.? There were 20 respiratory arousals for an index of 5.5. There were 50 periodic limb movement arousals for an index of 13.7.? There were 17 isolated limb movement arousals for an index of 4.7. There were 23 spontaneous arousals for an index of 6.3. During the treatment portion of the study, there were a total of 65 arousals for an index of 25.4.? There were 9 respiratory arousals for an index of 3.5. There were 12 periodic limb movement arousals for an index of 4.7.? There were 14 isolated limb movement arousals for an index of 5.5. There were 30 spontaneous arousals for an index of 11.7. Periodic Limb Movements During the diagnostic portion of the study, the patient had 26 isolated limb movements with an index of 7.1. The patient had 79 periodic limb movements with an index of 21.7, which is elevated (normal < 15). The patient had a total of 105 limb movements with a total limb movement index of 28.8. During the treatment portion of the study, the patient had 18 isolated limb movements with an index of 7.0. The patient had 15 periodic limb movements with an index of 5.9. The patient had a total of 33 limb movements with a total limb movement index of 12.9. Oximetry Data During the diagnostic portion of the study, the patient had an average oxygen saturation of 95.5% in wake with a minimum oxygen saturation of 78% and a maximum oxygen saturation of 99%. The patient had an average oxygen saturation of 92.3% in sleep with a minimum oxygen saturation of 81.0% and a maximum oxygen saturation of 98.0%. The patient had 39 oxygen desaturations resulting in an Oxygen Desaturation Index of 10.7. The patient spent 2.6 minutes, 1.1% of total sleep time with an oxygen saturation less than 88%. During the treatment portion of the study, the patient had an average oxygen saturation of 97.2% in wake with a minimum oxygen saturation of 90.0% and a maximum oxygen saturation of 100.0%. The patient had an average oxygen saturation of 94.9% in sleep with a minimum oxygen saturation of 85.0% and a maximum oxygen saturation of 100.0%. The patient had 27 oxygen desaturations resulting in an Oxygen Desaturation Index of 10.6. The patient spent 0.4 minutes, 0.2% of total sleep time with an oxygen saturation less than 88%. Snoring Profile Mild snoring was present throughout the baseline portion of the study. The snoring resolved once the patient was titrated to CPAP 12 cm H2O. Cardiac Profile The EKG lead showed normal sinus rhythm. No arrhythmias or premature beats were seen. During the diagnostic portion of the study, the average pulse rate was 87.2 bpm.? The minimum pulse rate was 69.0 bpm. The maximum pulse rate was 103.0 bpm. During the treatment portion of the study, the average pulse rate was 80.7 bpm.? The minimum pulse rate was 62.0 bpm. The maximum pulse rate was 103.0 bpm. EEG Profile No signs of seizure activity seen. Assessment and Plan Assessment and Plan (1) LORENA (obstructive sleep apnea): Code(s): G47.33 - Obstructive sleep apnea (adult) (pediatric) Status: Acute Assessment and Plan: In the diagnostic portion of the study, the patient had an overall AHI of 7.4 with desaturation down to 81%. This is consistent with mild sleep apnea. The patient was started on CPAP 5 cm H2O and titrated to CPAP 12 cm H2O due to hypopneas. The patient's sleep apnea resolved on the final pressure setting. I recommend that the patient be prescribed CPAP 12 cm H2O, size medium Resmed AirTouch F20 full face mask, CPAP filters/tubing and heated humidity. This should be used with all episodes of sleep.? Compliance should be reviewed within 31-90 days of starting therapy for usage greater than 4 hours per night greater than 70% of the nights. The patient should be asked about symptoms such as?excessive daytime sleepiness, quality of sleep, decreased nocturia, increased?mental functioning such as memory, mood, and concentration. Data The data obtained during this sleep study is adequate for interpretation. Certification This sleep study has been reviewed by a board certified sleep medicine physician.
[2024-12-15 12:25] VITALS: BMI 35.4
== END 2024-11-18 07:11 | disposition home or self-care (01) ==
LOC: ANHCSM 10:50
PROVIDERS: PCP Family Medicine; Visit Provider Family Medicine
DX: G47.30 Sleep apnea, unspecified (principal); G47.33 Obstructive sleep apnea (adult) (pediatric)
CPT/HCPCS: 95811